=== PATIENT | male | born 1940 | race Caucasian/White ===

== ENCOUNTER → 2021-11-09 | Day surgery (SDC) | payer MEDICARE ==
[2021-11-06 09:08] LABS: BASOPHILS % 0.7 % (0.0-1.0); EOSINOPHILS # (AUTO) 0.1 (0.0-0.4); EOSINOPHILS % 1.7 % (0.0-6.0); HEMATOCRIT 44.8 % (38.2-49.6); HEMOGLOBIN 14.3 g/dL (14.0-18.0); LYMPHOCYTES # (AUTO) 1.7 (1.0-3.2); LYMPHOCYTES % 28.3 % (18.0-39.1); MEAN CORPUSCULAR HEMOGLOBIN 32.1 pg (28-32); MEAN CORPUSCULAR HGB CONC 31.9 g/dL (31-35); MEAN CORPUSCULAR VOLUME 100.7 fL (81-99); MONOCYTES # (AUTO) 0.8 (0.2-0.8); MONOCYTES % 13.1 % (4.4-11.3); NEUTROPHILS # (AUTO) 3.3 (2.1-6.9); PLATELET COUNT 156 x10e3/uL (140-360); RED BLOOD COUNT 4.45 x10e6/uL (4.3-5.7); RED CELL DISTRIBUTION WIDTH 13.2 % (11.7-14.4)
[2021-11-06 09:27] LABS: ALBUMIN 3.6 g/dL (3.5-5.0); ANION GAP 9.5 mmol/L (8-16); CALCIUM 9.2 mg/dL (8.4-10.2); CREATININE, SERUM 1.47 mg/dL (0.72-1.25); POTASSIUM 4.5 mmol/L (3.5-5.1)
[~2021-11-09] MED LIST: ACETAMINOPHEN 1000 MG/100 ML IV ONE; AMLODIPINE BESYL5 MG PO; ASPIRIN325 MG PO; BUPIVACAINE 0.25% 30ML SDV ONE; CALCITRIOL0.25 MCG PO; CARVEDILOL3.125 MG PO; COLESTID1 G; ENTRESTO 49 MG1 EACH; FENTANYL CITRATE/PF 100MCG/2 ML INJ ONE; FINASTERIDE5 MG PO; FUROSEMIDE40 MG PO; KLOR-CON M2020 MEQ PO; LIDOCAINE 2%/ EPINEPHRINE 20ML MDV ONE; LIDOCAINE HCL 2% LOCAL INJ 5 ML SDV VIAL INJ ONE; LOSARTAN POTAS100 MG PO; MIDAZOLAM HCL 2 MG/2 ML VIAL ONE; POVIDONE IODINE 0.05% 0.05 % ML PO ONE; PROPOFOL IV EMULSION 10 MG/ML 20 ML VIAL ONE; TAMSULOSIN HCL0.4 MG PO; VITAMIN D1000 UNIT PO
[2021-11-09 10:45] VITALS: BP 119/71
== END | disposition home or self-care (01) ==
LOC: OR 07:04
PROVIDERS: ATTEND Surgery
DX: K40.90 Unilateral inguinal hernia, without obstruction or gangrene, not specified as recurrent (principal); D17.6 Benign lipomatous neoplasm of spermatic cord; K44.9 Diaphragmatic hernia without obstruction or gangrene; I13.0 Hypertensive heart and chronic kidney disease with heart failure and stage 1 through stage 4 chronic kidney disease, or unspecified chronic kidney disease; N18.30 Chronic kidney disease, stage 3 unspecified; I50.9 Heart failure, unspecified; I48.91 Unspecified atrial fibrillation; I34.1 Nonrheumatic mitral (valve) prolapse; N40.0 Benign prostatic hyperplasia without lower urinary tract symptoms; M19.90 Unspecified osteoarthritis, unspecified site; M54.9 Dorsalgia, unspecified; R06.83 Snoring; Z01.810 Encounter for preprocedural cardiovascular examination; Z01.812 Encounter for preprocedural laboratory examination; Z01.818 Encounter for other preprocedural examination; Z20.822 Contact with and (suspected) exposure to COVID-19; Z79.899 Other long term (current) drug therapy; Z95.818 Presence of other cardiac implants and grafts; Z95.810 Presence of automatic (implantable) cardiac defibrillator; Z87.891 Personal history of nicotine dependence
CPT/HCPCS: 36415; 49505; 71046; 80053; 85025; 93005; C1781; J0131; J2001 ×2; J2250; J2704; J3010; U0002

== ENCOUNTER → 2022-06-02 | Outpatient (CLI) | payer MEDICARE ==
[~2022-06-02] MED LIST changes: -ACETAMINOPHEN 1000 MG/100 ML IV ONE; -BUPIVACAINE 0.25% 30ML SDV ONE; -FENTANYL CITRATE/PF 100MCG/2 ML INJ ONE; -LIDOCAINE 2%/ EPINEPHRINE 20ML MDV ONE; -LIDOCAINE HCL 2% LOCAL INJ 5 ML SDV VIAL INJ ONE; -MIDAZOLAM HCL 2 MG/2 ML VIAL ONE; -POVIDONE IODINE 0.05% 0.05 % ML PO ONE; -PROPOFOL IV EMULSION 10 MG/ML 20 ML VIAL ONE
== END ==
LOC: RAD 15:21
PROVIDERS: ATTEND Internal Medicine
DX: M54.50 Low back pain, unspecified (principal); M54.16 Radiculopathy, lumbar region; M16.11 Unilateral primary osteoarthritis, right hip
CPT/HCPCS: 72100

== ENCOUNTER → 2022-06-18 | Outpatient (CLI) | payer MEDICARE | LOC: RAD 09:19 | PROVIDERS: ATTEND Family Medicine | DX: L97.321 Non-pressure chronic ulcer of left ankle limited to breakdown of skin (principal); L98.9 Disorder of the skin and subcutaneous tissue, unspecified ==

== ENCOUNTER 2022-06-30 08:30 | Outpatient (RCR) | payer MEDICARE ==
[~2022-06-30 08:30] MED LIST changes: +LIDOCAINE VISC 2% SOLN 15 ML UDC ONE; +MUPIROCIN 2% OINT 22 GM TUBE ONE
== END 2022-07-02 ==
LOC: WCC 08:30
PROVIDERS: ATTEND Family Medicine
DX: L97.321 Non-pressure chronic ulcer of left ankle limited to breakdown of skin (principal); S91.002A Unspecified open wound, left ankle, initial encounter; N18.30 Chronic kidney disease, stage 3 unspecified; I10 Essential (primary) hypertension; I48.21 Permanent atrial fibrillation; N42.89 Other specified disorders of prostate
CPT/HCPCS: 87071; 87075; 87205

== ENCOUNTER 2024-07-25 09:53 | Outpatient (RCR) | payer MEDICARE ==
[~2024-07-25 09:53] MED LIST changes: -LIDOCAINE VISC 2% SOLN 15 ML UDC ONE; -MUPIROCIN 2% OINT 22 GM TUBE ONE
== END 2024-08-02 ==
LOC: OT 09:53
PROVIDERS: ATTEND Specialist
DX: S46.012D Strain of muscle(s) and tendon(s) of the rotator cuff of left shoulder, subsequent encounter (principal); M25.512 Pain in left shoulder; M25.612 Stiffness of left shoulder, not elsewhere classified; R53.1 Weakness